=== PATIENT | female | born 1955 | race Caucasian/White ===

== ENCOUNTER 2019-05-12 07:54 | Day surgery (SDC) | payer BC ==
[~2019-05-12] VITALS: Wt 80.1 kg
[~2019-05-12 07:54] MED LIST: AMLO10 PO; FENO145 PO; LOSA50 PO; OMEP20ER PO; OSTERA TABLET1 EACH PO
--- NOTE | 2019-05-12 08:16 | NUR ---
ADMISSION TO UNIT STARTED PATIENT IN BATHROOM AT THIS TIME.
--- NOTE | 2019-05-12 09:32 | NUR ---
05/12/19 0932 [employer] Sales PATIENT DETERMINED TO BE ASA APPROPRIATE FOR PROPOFOL SEDATION PRIOR TO START OF PROCEDURE BY . 3-LEAD EKG REVIEWED WITH PHYSICIAN PRIOR TO START OF PROCEDURE.PATIENT CONFIRMS NPO STATUS AND AGREES WITH SCHEDULED PROCEDURE.History, Chart, Medications and Allergies reviewed before start of procedure.MONITOR INTACT WITH CONTINUOUS PULSE OXIMETRY AND INTERMITTENT BP.O2 VIA N/C INTACT THROUGHOUT SEDATION/PROCEDURE.
--- NOTE | 2019-05-12 10:29 | NUR ---
Discharge instructions reviewed with patient. Patient verbalizes understanding. Copy given to patient to take home. Discharged via wheelchair to private car for ride home.
== END 2019-05-12 10:30 | disposition home or self-care (01) ==
LOC: ORSCMMR 07:54 → ORD 09:00 → ORSCMMR 09:00
DX: Z12.11 Encounter for screening for malignant neoplasm of colon (principal); K63.5 Polyp of colon; K62.1 Rectal polyp; K57.30 Diverticulosis of large intestine without perforation or abscess without bleeding; K21.9 Gastro-esophageal reflux disease without esophagitis; I10 Essential (primary) hypertension; E78.00 Pure hypercholesterolemia, unspecified; Z79.899 Other long term (current) drug therapy
CPT/HCPCS: 88305; J2704; J7120